=== PATIENT | female | born 1940 | race Caucasian/White ===

== ENCOUNTER 2024-05-02 11:26 | Inpatient (IN) | payer MEDICARE, BC, SELFPAY ==
[2024-05-02] VITALS (13 sets, daily range): BP systolic 126–213; BP diastolic 50–89; PULSE 82–90; BMI 23.5
[2024-05-02 04:16] LABS: Glucose - Point of Care 164 mg/dl (70-99)
[2024-05-02 04:44] LABS: % Basophils 0.7 % (0-2); % Eosinophils 0.5 % (0-6); % Immature Granulocytes 0.4 % (0-0.5); % Lymphocytes 24.3 % (20.5-51.1); % Monocytes 9.8 % (1.7-9.3); % Neutrophils 64.3 % (42.2-75.2); Absolute Basophils 0.1 10^3/uL (0-0.2); Absolute Monocytes 0.8 10^3/uL (0.1-0.6); Absolute Neutrophils 5.3 10^3/uL (1.4-6.5); Hematocrit 37.6 % (37.0-47.0); Hemoglobin 12.1 g/dL (12.0-16.0); Mean Corp Hgb Conc. 32.2 g/dL (33.0-37.0); Mean Corpuscular Hgb 27.5 pg (27.0-31.0); Mean Corpuscular Volume 85.5 fL (81.0-99.0); Mean Platelet Volume 10.4 fL (7.4-10.4); Nucleated Red Blood Cells % 0 %; Platelet Count 168 10^3/uL (130-400); Red Cell Dist. Width 13.3 % (11.5-14.5); White Blood Cell Count 8.2 10^3/uL (4.8-10.8)
[2024-05-02 05:23] LABS: ALT (SGPT) 17 U/L (0-35); AST (SGOT) 38 U/L (14-36); Albumin 3.9 g/dl (3.5-5.0); Alkaline Phosphatase 72 U/L (38-126); Blood Urea Nitrogen 27 mg/dl (7-17); Calcium 10.3 mg/dl (8.4-10.2); Carbon Dioxide 25 mmol/L (22-30); Chloride 108 mmol/L (98-107); Glucose 153 mg/dl (70-99); Potassium 4.5 mmol/L (3.5-5.1); Sodium 140 mmol/L (135-145); Total Bilirubin 0.7 mg/dl (0.2-1.3); Total Protein 6.9 g/dl (6.3-8.2); eGFR > 60.00
[2024-05-02] MEDS: NSS 1000 IV (05:52)
[2024-05-02 07:11] LABS: TSH Reflex To Free T4 0.02 uIU/ml (0.47-4.68)
[2024-05-02 07:17] LABS: Urine Albumin 1+ (Neg - Trace); Urine Bilirubin Negative (Negative); Urine Character Clear (Clear); Urine Color Yellow; Urine Glucose Negative (Negative); Urine Ketone Trace (Negative); Urine Leukocyte Trace (Negative); Urine Nitrite Negative (Negative); Urine Occult Blood Negative (Negative); Urine Urobilinogen Negative (Neg - 1+)
[2024-05-02 07:38] LABS: Free T4 3.03 ng/dl (0.78-2.19)
--- NOTE | 2024-05-02 08:05 | ED.GENMED ---
History of Present Illness
General
Chief Complaint: Dehydration Symptoms
Source: patient and spouse
Exam Limitations: clinical condition
Time Seen by Provider: 05/02/24 05:14
History of Present Illness
History of Present Illness:
This is an 84-year-old woman who resides at home with her . She has history of insulin requiring diabetes has been maintained on Levemir 14 units at bedtime for quite some time but states more recently Levemir was changed to a different
brand and she admits to not feeling well throughout the day yesterday and tonight developed acute diarrhea passing multiple liquid to loose stools and while attempting to get up out of bed she slipped and fell out of bed onto her bottom. She denies
head injury nor loss of consciousness but felt too weak to be able to get up on her own.
Initially reported no recent falls but according to family and patient herself she has fallen several times throughout the week and patient admits to falling into a [employer] several days ago when she was not using her walker.
With inability to stand, significant diarrhea tonight this prompted called 911 and she was brought to the ED for further evaluation.
A grandson notes that there has been a slow steady decline in his grandmothers overall functioning. Some increased confusion over the past several months.
There has been no episodes of hypoglycemia and patient states her diabetes has been well-controlled with hemoglobin A1c most recently at 6.8.
No close contacts with similar GI symptoms.
She has history of chronic arthritis of right hip and has an appointment with [facility] orthopedics scheduled for Wednesday.
She denies chest pain nor abdominal pain. She does not believe she has been running a fever. No recent antibiotics.
She admits to some chronic urinary frequency but denies dysuria nor urgency nor hematuria.
She takes no anticoagulants save for low-dose aspirin.
Past History
Past History
ED Past Medical History: HTN, IDDM, Hypothyroidism and Psychiatric
Social History
Tobacco: Non-smoker
Alcohol: None
Personal:
Living: with family
Family History
Family History: Other (Noncontributory)
Phy Exam
Physical Exam
Physical Exam:
GENERAL: 84-year-old woman appears her stated age, awake and alert, pleasant, mildly ill in appearance but easily communicative. is accompanying.
EYE: pupils equal and reactive. anicteric. The head is normocephalic, atraumatic.
NECK: Supple, nontender, no meningismus, no significant adenopathy.
ENT: Lips as well as oral mucosa are moderately dry. Posterior pharynx is clear. No rhinorrhea.
CARDIAC: Regular rate and rhythm. no murmur.
LUNGS: Clear breath sounds bilaterally, no acute respiratory distress, no wheezes/rales/rhonchi
ABDOMEN: Soft, nondistended, mild suprapubic and left lower quadrant tenderness with deep palpation only, no r/g, no cvat. normoactive BS.
BACK: No midline bony tenderness nor palpable bony pelvic tenderness.
NEUROLOGICAL: Alert and oriented x3, motor strength 5/5 bilateral upper extremities, +4/5 left lower extremity, 5/5 right lower extremity.
SKIN: Warm and dry, normal color, subacute scabbed abrasions right anterior knee and to lesser extent left anterior knee.
MUSCULOSKELETAL: No C/C/E. peripheral pulses are full and equal b/l. No palpable tenderness.
PSYCH: Normal and appropriate interaction.
Course
Orders/Labs/Results
Orders:
Orders
05/02/24 04:19
CMP [Comprehensive Metabolic Panel] Urgent
Complete Blood Count/With Diff Urgent
Free T4 Urgent
TSH Reflex To Free T4 Urgent
Comment: ADD ON
05/02/24 05:37
CT Head W/o Iv Contrast Urgent
Comment:
Reason For Exam: progressive confusion, freq falls x 1 week
05/02/24 05:38
CT Abd/pelvis W Iv Cont Urgent
Comment:
Reason For Exam: acute diarrhea, lowr abd pain
05/02/24 05:39
Add On- LAB Urgent
Tests Added?: TSH w reflex to free T-4
0.9% Sodium Chloride 1000 ml [Nss] 1,000 ml IV BOLUS
05/02/24 06:37
Urinalysis Reflex To Culture Urgent
Date Specimen was Collected: 05/02/24
Time Specimen was Collected: 06:27
Urine Microscopic Reflex Cult Urgent
Abnormal Lab Results
05/02/24 05/02/24 05/02/24
04:14 04:19 06:37
MCHC 32.2 L g/dL
(33.0-37.0)
Absolute Monos (auto) 0.8 H 10^3/uL
(0.1-0.6)
Monocytes % 9.8 H %
(1.7-9.3)
Chloride 108 H mmol/L
(98-107)
BUN 27 H mg/dl
(7-17)
Glucose 153 H mg/dl
(70-99)
Calcium 10.3 H mg/dl
(8.4-10.2)
AST 38 H U/L
(14-36)
TSH (Reflex) 0.02 L uIU/ml
(0.47-4.68)
Free T4 3.03 H ng/dl
(0.78-2.19)
Urine Ketones Trace A
(Negative)
Leukocyte Esterase Rfl Trace A
(Negative)
Urine Albumin (Reflex) 1+ A
(Neg - Trace)
POC Glucose 164 H mg/dl
(70-99)
05/02/24 04:19
05/02/24 04:19
Vital Signs
Initial and Last Documented VS:
Initial Vital Signs
Temp Pulse Resp BP Pulse Ox
98 F 80 18 126/56 100
05/02/24 00:25 05/02/24 00:25 05/02/24 00:25 05/02/24 00:25 05/02/24 00:25
Last Documented Vital Signs
Temp Pulse Resp BP Pulse Ox
98 F 65 19 146/89 97
05/02/24 00:25 05/02/24 07:00 05/02/24 07:00 05/02/24 07:00 05/02/24 07:00
MDM/Problems Addressed
Differential Diagnosis Includes:
Acute diarrheal illness concern for acute colitis, diverticulitis, gastroenteritis. Concern for acute kidney injury, dehydration, electrolyte abnormality.
With frequent falls concern for occult pelvic fracture, less likely hip fracture as patient has been ambulatory throughout the week, concern for closed head injury, subacute CVA especially in light of mild weakness of left lower extremity.
Will check labs, urinalysis and plan for CT of the head as well as CT abdomen pelvis.
Chronic conditions affecting care: DM, HTN, Neurological disorder, Psychiatric illness, Kidney disease and Other (Hypothyroidism)
*Radiology
Radiology exam reviewed: radiology read reviewed
*Pulse Oximetry
Patient hypoxic: no
*Habilitation Assistant Interpretation
Rate: normal
Interpretation: normal
Rhythm: sinus
*Critical Care Note
Total Time (30-74mins, 75-104mins- exclusive of procedures): Not Applicable
Update Note
Update Note:
05/02/2024 0831 AM
Labs are remarkable for moderate prerenal azotemia as well as moderately suppressed TSH with elevated free T4 at 3.03. Patient is chronically maintained on levothyroxine 125 mcg daily. Unclear as to her last TSH evaluation.
CAT scan of the head shows several old strokes, no evidence of acute stroke but this is certainly a possibility.
CT of the abdomen pelvis shows acute proctitis. There is note of significant vascular calcifications and note of a large partially calcified soft tissue mass distal esophagus without associated obstruction. As this mass is calcified is likely
chronic and patient has had no chest pain nor difficulty swallowing which lends to a more benign process.
I do have concern with acute proctitis, dehydration, generalized weakness and frequent falls. This could all be related to dehydration but there is still some concern for acute stroke.
Will admit to hospitalist service, continue IV fluids, consider antibiotics.
Patient initially hesitant to be hospitalized but now agreeable especially with 's urging.
ED Attending Note
-
Portions of this chart may have been created with voice recognition software.� Occasional wrong word or��sound alike� substitutions may have occurred due to the inherent limitations of voice recognition software.
Discharge Plan
Departure
Patient Disposition: Admit
Date of Disposition: 05/02/24
Time of Disposition: 08:29
Admit to: Med/Surg
Presentation/result/management discussed w/ accepting MD/DO: Hospitalist
Condition: Fair
Discharge Problem:
acute proctitis with diarrhea, Acute dehydration, Generalized weakness, Frequent falls, Overcorrected hypothyroidism
Prescriptions:
No Action
metformin 500 mg Tablet
1,000 mg PO DAILY
atorvastatin 80 mg Tablet
80 mg PO DAILY
valsartan 80 mg Tablet
80 mg PO DAILY
levothyroxine [Synthroid] 125 mcg Tablet
125 mcg PO DAILY
aspirin 81 mg Tablet,Chewable
81 mg PO DAILY
insulin glargine [Lantus Solostar U-100 Insulin] 100 unit/mL (3 mL) Insulin Pen
14 unit SC DAILY
divalproex
250 mg DAILY
olanzapine
DAILY
Referrals:
Samm Guillory MD [Family Provider] -
Interventions
Interventions:
*Risk Screen - Suicide Last Done: 05/02/24 00:25
*General Assessment Last Done: 05/02/24 07:27
*Neglect/Abuse Screening Last Done: 05/02/24 00:25
*ED COVID-19 Vaccine History Last Done: 05/02/24 07:27
ED- Cardiac Assessment Last Done: 05/02/24 05:30
ED-Musculoskeletal Assessment Last Done: 06/25/24 05:30
ED- Neurological Assessment Last Done: 05/02/24 05:30
ED- Pulmonary Assessment Last Done: 05/02/24 05:30
ED-Skin Assessment Last Done: 05/02/24 05:30
Discharge Date and Time
Print Language: GUINEAN
[2024-05-02 08:23] LABS: Urine Mucus Many; Urine Squamous Cell 0-2 /LPF (Few)
[2024-05-02 08:24] LABS: Urine Hyaline Cast >15 /LPF (0-2)
[2024-05-02 08:26] LABS: Urine Epithelial Cast 0-2 /LPF
--- NOTE | 2024-05-02 09:41 | CON.GI ---
Addendum entered and electronically signed by Lai Meléndez MD 05/02/24 16:16:
Patient seen and examined, agree with nurse practitioner note. The patient is an 84-year-old female past medical history of diabetes, hypothyroid, hypertension with questionable bipolar disorder, who presents with diarrhea. She has had
intermittent diarrhea, though usually not severe. She denies any bloody diarrhea or significant abdominal pain. Denies any dysphagia or odynophagia. She was found on CAT scan to have mild acute proctitis, as well as incidentally noted 7.4
partially calcified soft tissue mass in the distal esophagus, consistent with leiomyoma or less likely leiomyosarcoma. She is currently feeling better overall, denies any significant abdominal pain has had no further diarrhea. Most likely etiology
was just proctitis would be underlying constipation, likely overflow diarrhea, now with stercoral proctitis. At this point if she has further diarrhea we will check stool studies, though continue supportive care and observation. I discussed with
her and her about further workup of probable leiomyoma, that this is likely chronic given extensive calcification, and no symptoms, and we will hold on any further evaluation for now as even if this was a leiomyosarcoma would not consider
treatment or surgery.
Original Note:
Consultation
-
Date/Time Consultation Requested: 05/02/24844
Date/Time Consultation Performed: 05/02/24944
Requesting Provider: Odette Camargo DO
Performing Provider: ENEDINA Falcon, Darin Meléndez MD
Reason for Consultation: diarrhea/proctitis
Medical History
Chief Complaint / HPI
History of Present Illness:
Pt is a 84yo with hx NIDDM, ? bipolar, hypothyroidism, HTN with acute onset of diarrhea with passing multiple stools. In ER HCT with multiple infarcts and CT A/p with acute proctitis, large calcified soft tissue tumor in distal esophagus and GE
junction to esophageal hiatus, leiomyoma vs less likely leiomyosarcoma and also noted severe calcific atherosclerotic disease, aneurysmal dilation thoracic aorta, abdominal aorta, and right common iliac artery, renal art stenosis and renal
scarring.
Pt with some limited history. In reviewing with spouse pt with bout of diarrhea every several month. No constipation, no dysphagia, GERD, nausea, vomiting, abdominal pain, rectal bleeding or wt loss. No hx EGD or colonoscopy. No NSAID use.
Past Medical History
Past Medical History: HTN, Hypothyroidism, IDDM and Psychiatric (? bipolar- family denies )
Social History
Tobacco: Smoker
Alcohol: Occasional (rare)
Drug: None
Living: With Family
Employment: Retired
Family History
Family History: Other (no family hx GI cancers )
Allergies / Home Medications
Allergy/AdvReac Type Severity Reaction Status Date / Time
NKA - No Known Allergies Allergy Unknown Uncoded 05/02/24 00:29
�Medication �Instructions �Recorded
aspirin 81 mg chewable tablet 81 mg PO DAILY 05/02/24
atorvastatin 80 mg tablet 80 mg PO DAILY 05/02/24
divalproex 250 mg tablet,extended 750 mg PO HS 05/02/24
release 24 hr
insulin glargine 100 unit/mL (3 14 unit SC HS 05/02/24
mL) subcutaneous pen (Lantus
Solostar U-100 Insulin)
levothyroxine 125 mcg tablet 125 mcg PO MOTUWETHFRSA 05/02/24
(Synthroid)
levothyroxine 125 mcg tablet 250 mcg PO TOVAR 05/02/24
(Synthroid)
metformin 500 mg tablet,extended 1,000 mg PO QPM 05/02/24
release 24 hr
metformin 500 mg tablet,extended 500 mg PO DAILY 05/02/24
release 24 hr
olanzapine 5 mg tablet 5 mg PO HS 05/02/24
valsartan 80 mg tablet 80 mg PO DAILY 05/02/24
Review of Systems
-
History Source: Patient and Family
Constitutional: Reports Fever
Respiratory: Reports No Symptoms
Cardiac: Reports No Symptoms
Abdomen/GI: Reports Diarrhea
: Reports No Symptoms
Musculoskeletal: Reports No Symptoms
Skin: Reports No Symptoms
Neurological: Reports No Symptoms
Endocrine: Reports No Symptoms
Hematologic/Lymphatic: Reports No Symptoms
Vital Signs
Temp Pulse Resp BP Pulse Ox
98 F 62 19 182/70 95
05/02/24 00:25 05/02/24 07:15 05/02/24 07:15 05/02/24 09:00 05/02/24 08:43
Physical Exam
Exam
General: Well Developed, Well Nourished and Other (forgetful, anxious to use bathroom)
HEENT: Normocephalic and Anicteric
Respiratory: Clear
Cardiac: Regular Rhythm
GI: Soft, Non Tender and Non Distended
Rectal: Brown, Hem Negative and Other (some resistance to exam-- no masses or lesions, no impaction )
Musculoskeletal: No Clubbing and No Cyanosis
Skin: Warm and Dry
Neuro: Awake, Alert and Other (confused )
Psych: Calm
Results
WBC 8.2 10^3/uL (4.8-10.8) 05/02/24 04:19
Hgb 12.1 g/dL (12.0-16.0) 05/02/24 04:19
Hct 37.6 % (37.0-47.0) 05/02/24 04:19
MCV 85.5 fL (81.0-99.0) 05/02/24 04:19
Plt Count 168 10^3/uL (130-400) 05/02/24 04:19
Absolute Neuts (auto) 5.3 10^3/uL (1.4-6.5) 05/02/24 04:19
Sodium 140 mmol/L (135-145) 05/02/24 04:19
Potassium 4.5 mmol/L (3.5-5.1) 05/02/24 04:19
Chloride 108 mmol/L (98-107) H 05/02/24 04:19
Carbon Dioxide 25 mmol/L (22-30) 05/02/24 04:19
BUN 27 mg/dl (7-17) H 05/02/24 04:19
Creatinine 0.9 mg/dL (0.6-1.0) 05/02/24 04:19
Calcium 10.3 mg/dl (8.4-10.2) H 05/02/24 04:19
Total Bilirubin 0.7 mg/dl (0.2-1.3) 05/02/24 04:19
AST 38 U/L (14-36) H 05/02/24 04:19
ALT 17 U/L (0-35) 05/02/24 04:19
Alkaline Phosphatase 72 U/L (38-126) 05/02/24 04:19
Diagnostic Image Results:
05/02/24 CT Abd/pelvis W Iv Cont
1. Mild acute proctitis.
2. LARGE 7.4 cm PARTIALLY CALCIFIED SOFT TISSUE TUMOR in the DISTAL ESOPHAGUS and GASTROESOPHAGEAL JUNCTION extending through the esophageal hiatus. Diagnostic possibilities are (1) an ESOPHAGEAL LEIOMYOMA or (2) less likely an esophageal
leiomyosarcoma.
3. VERY SEVERE CALCIFIC ATHEROSCLEROTIC DISEASE in the chest, abdomen, and pelvis.
4. 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
5. 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
6. 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
7. Mild to moderate bilateral renal cortical scarring.
8. Severe calcific atherosclerotic plaque in the coronary arteries.
05/02/24 HCT
1. Moderate diffuse cerebral and cerebellar volume loss.
2. Moderate-sized chronic transcortical infarct in the posterior right frontal and anterior right parietal lobes.
3. Small chronic infarcts in the right frontal lobe, right caudate nucleus, periventricular left frontal lobe, and left cerebellum.
4. Very severe calcific atherosclerotic disease in both the anterior and posterior intracranial circulations.
Prior GI Procedures:
EGD: none
Colonoscopy: none
Assessment / Plan
-
Pt is a 84yo with hx NIDDM, ? bipolar, hypothyroidism, HTN with acute onset of diarrhea with passing multiple stools with hx periodic diarrhea. In ER HCT with multiple infarcts and CT A/p with acute proctitis, large calcified soft tissue tumor in
distal esophagus and GE junction to esophageal hiatus, leiomyoma vs less likely leiomyosarcoma and also noted severe calcific atherosclerotic disease, aneurysmal dilation thoracic aorta, abdominal aorta, and right common iliac artery, renal art
stenosis and renal scarring. No hx EGD or colonoscopy.
-acute onset of diarrhea
-proctitis on CT
-CT with large calcified soft tissue tumor distal esophagus to GE junction
-confusion with multiple infarcts on HCT
-severe calcific atherosclerotic disease
-elevated calcium
other med problems:
-NIDDM
-hypothyroidism
-HTN
-? bipolar disorder
PLAN:
etiology of symptoms of diarrhea related to constipation with overflow then resultant proctitis vs infectious process vs IBD vs other
await stool studies to be sent
ok for diet from GI standpoint
consider eventual colonoscopy vs flex if diarrhea persists with noted proctitis- heme neg in exam no impaction
will review CT with noted calcified mass distal esophagus with Dr. Meléndez and need for EGD
work up for confusion/infarct on HCT per hospitalist- new per family
reviewed with Dr. Denis
-
-
Thank you for consultation and allowing me to participate in the patient's care. Please call the electronic publishing specialist GI physician during the after hours with any questions or concerns.
--- NOTE | 2024-05-02 10:32 | HPS.HSE ---
Addendum entered and electronically signed by Millicent Denis MD 05/02/24 11:06:
Will also check echo given cardiac exam noted systolic murmur
Original Note:
Family Physician
-
Family Physician: Samm Guillory
Chief Complaint
-
Diarrhea
Fall
History of Present Illness
HPI: 84-year-old woman with PMH IDDM, HTN, Hypothyroidism, previous stroke with likely vascular dementia, chronic arthritis of right hip who resides at home with her ; p/w weakness and ?acute diarrhea. She apparently has had multiple liquid
loose stools and while attempting to get up out of bed to use the bathroom, she slipped and fell out onto her bottom.
She denies head injury or loss of consciousness but felt too weak to be able to get up on her own.
She is a poor historian due to likely vascular dementia.
Per ER note, her grandson noted that there has been a slow steady decline in his grandmother's overall function. Some increased confusion over the past several months.
Apparently no episodes of hypoglycemia and patient states her diabetes has been well-controlled with hemoglobin A1c most recently at 6.8.
She denies to other symptoms, but again, she is a poor and unreliable historian.
Medical History
Past Medical History
Past Medical History: Reports Other
Additional Past Medical History:
IDDM,
HTN,
Hypothyroidism,
previous stroke with likely vascular dementia,
chronic arthritis of right hip
Past Surgical History: Reports Other
Social History
Tobacco: Smoker (2 to 3 cigarettes/day)
Alcohol: None
Personal:
Living: With Family
Family History
Family History: Not pertinent
Allergies / Home Medications
Allergies reflects when Allergies were last updated in [email or web address].
Home Medications with original date entered in [email or web address]
Allergy/Medication List:
Allergies
Allergy/AdvReac Type Severity Reaction Status Date / Time
NKA - No Known Allergies Allergy Unknown Uncoded 05/02/24 00:29
Home Medications
aspirin 81 mg chewable tablet 81 mg PO DAILY Blood Clot Prevention/Tx 05/02/24
atorvastatin 80 mg tablet 80 mg PO DAILY High Cholesterol 05/02/24
divalproex 250 mg tablet,extended release 24 hr 750 mg PO HS Neurological Condition 05/02/24
insulin glargine 100 unit/mL (3 mL) subcutaneous pen (Lantus Solostar U-100 Insulin) 14 unit SC HS Diabetes 05/02/24
levothyroxine 125 mcg tablet (Synthroid) 125 mcg PO MOTUWETHFRSA Thyroid 05/02/24
levothyroxine 125 mcg tablet (Synthroid) 250 mcg PO TOVAR Thyroid 05/02/24
metformin 500 mg tablet,extended release 24 hr 1,000 mg PO QPM Diabetes 05/02/24
metformin 500 mg tablet,extended release 24 hr 500 mg PO DAILY Diabetes 05/02/24
olanzapine 5 mg tablet 5 mg PO HS Neurological Condition 05/02/24
valsartan 80 mg tablet 80 mg PO DAILY Blood Pressure 05/02/24
Review of Systems
-
Abdomen/GI: Reports See HPI and Diarrhea
Neurological: Reports See HPI and Weakness
Physical Exam
Vital Signs
Vital Signs
Temp Pulse Resp BP Pulse Ox
36.6 C 62 19 182/70 95
05/02/24 00:25 05/02/24 07:15 05/02/24 07:15 05/02/24 09:00 05/02/24 08:43
Physical Exam
General: Well Developed, Well Nourished, No Apparent Distress, Comfortable and Conversant
HEENT: NormoCephalic, Moist mucous membranes and Atraumatic
Respiratory: Clear and Non Labored Respirations; No Accessory Resp Muscle Use
Cardiac: S1/S2 and Regular Rhythm; No Murmur or Rub
GI: Soft, Non Tender, Non Distended and Normal Bowel Sounds; No Organomegaly
Rectal: Deferred by Provider
Musculoskeletal: No Clubbing, No Cyanosis and No Edema
Neuro: Awake and Alert
Psych: Calm; No Intact Judgment/Insight
Laboratory Results
-
05/02/24 04:19
05/02/24 04:19
Laboratory Results
Total Bilirubin 0.7 mg/dl (0.2-1.3) 05/02/24 04:19
AST 38 U/L (14-36) H 05/02/24 04:19
ALT 17 U/L (0-35) 05/02/24 04:19
Alkaline Phosphatase 72 U/L (38-126) 05/02/24 04:19
Data Reviewed
-
CT Scan: Report Reviewed by me
Lab Data: Labs Reviewed by me
Impression/Plan
-
HPI: 84-year-old woman with PMH IDDM, HTN, Hypothyroidism, previous stroke with likely vascular dementia, chronic arthritis of right hip who resides at home with her ; p/w weakness and ?acute diarrhea. She apparently has had multiple liquid
loose stools and while attempting to get up out of bed to use the bathroom, she slipped and fell out onto her bottom.
She denies head injury or loss of consciousness but felt too weak to be able to get up on her own.
She is a poor historian due to likely vascular dementia.
Per ER note, her grandson noted that there has been a slow steady decline in his grandmother's overall function. Some increased confusion over the past several months.
Apparently no episodes of hypoglycemia and patient states her diabetes has been well-controlled with hemoglobin A1c most recently at 6.8.
She denies to other symptoms, but again, she is a poor and unreliable historian.
CT AP:
1. Mild acute proctitis.
2. LARGE 7.4 cm PARTIALLY CALCIFIED SOFT TISSUE TUMOR in the DISTAL ESOPHAGUS and GASTROESOPHAGEAL JUNCTION extending through the esophageal hiatus. Diagnostic possibilities are (1) an ESOPHAGEAL LEIOMYOMA or (2) less likely an esophageal
leiomyosarcoma.
3. VERY SEVERE CALCIFIC ATHEROSCLEROTIC DISEASE in the chest, abdomen, and pelvis.
4. 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
5. 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
6. 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
7. Mild to moderate bilateral renal cortical scarring.
8. Severe calcific atherosclerotic plaque in the coronary arteries.
A/P:
# Generalized weakness
CT head showed chronic stroke
UA not indicative of UTI
TSH 0.02, FT4 3.03
PT OT eval
# Acute vs subacute diarrhea
check stool studies: culture, C diff, Norovirus
GI CS
# Incidental finding of soft tissue mass in the distal esophagus and GE junction
GI consult
# Mild acute proctitis, related to ?acute to subacute diarrhea
GI CS
# Mild hypercalcemia
s/p 1L NSS bolus in ED, cont to monitor Calcium level
# IDDM
Cont [employer] lantus at decrease dose at 10 units HS
cover with ISS
Hold [employer] metformin during hospital stay
# HTN
Cont [employer] Valsartan with holding parameter
# Hypothyroidism
TSH 0.02, FT4 3.03
would decrease [employer] Synthroid from 125 to 100 and repeat TSH reflex FT4 in 4 weeks with PCP
# previous stroke with likely vascular dementia
Patient awake, orientated 2-3
Monitor neurostatus
DVT ppx: Lovenox SQ
FC
[2024-05-02 13:10] LABS: Glucose - Point of Care 103 mg/dl (70-99)
--- NOTE | 2024-05-02 14:19 | PTOTSP ---
Dysphagia Evaluation
Oral and pharyngeal stages of swallowing WFL for consistencies assessed (see patient care note) with no signs of aspiration. Patient is at risk for bottom up aspiration (i.e., '7.4 cm soft tissue tumor in distal esophagus and GEJ') and has chronic
risk factors for dysphagia (i.e., dementia, prior CVA).
Recommend:
1. Thin Liquids (Clear Liquids per provider)
2. Medications - as best tolerated
3. Strategies: upright to 90 degrees, remain upright for at least 30 minutes as a reflux precaution
4. Will assess with advanced solids as able/medically appropriate.
--- NOTE | 2024-05-02 15:51 | CM ---
Reviewed the chart notes and spoke with the patient's spouse at the bedside. The patient resides alone in a one story home with five steps to enter. The patient has a rolling walker, no VN or SNF in past. [facility] The patient's discharge plans will depend on her progress. CM continues to be available to patient/family and is monitoring medical plan for needs at discharge.
Plan: Discharge plans will depend on the patient's progress.
[2024-05-02 16:14] LABS: Glucose - Point of Care 246 mg/dl (70-99)
--- NOTE | 2024-05-02 16:44 | PTCARENOTE ---
Patient received from ED, accompanied by family, on room air. BP elevated at 168/76, HR 79. No IV infusor noted during assessment. MD made aware and ordering oral hydralazine until new infusor restarted. Bed alarm in place due to risk for falling,
and med sitter requested.
[2024-05-02] MEDS: APRESOLINE 10 MG IV (17:08)
[2024-05-02] MEDS: LOVENOX 40 MG SC (17:09)
[2024-05-02] MEDS: NOVOLOG FLEXPEN-LOW RESISTANCE 2 UNITS SC (17:09)
[2024-05-02] MEDS: NOVOLOG FLEXPEN-LOW RESISTANCE SC (17:09)
[2024-05-02 21:12] LABS: Glucose - Point of Care 92 mg/dl (70-99)
[2024-05-02] MEDS: DEPAKOTE ER (24 HR RELEASE) 750 MG PO (21:16)
[2024-05-02] MEDS: ZYPREXA 5 MG PO (21:16)
[2024-05-02] MEDS: LANTUS 0.100000000000000006 UNITS SC (22:35)
[2024-05-03 03:14] LABS: Glucose - Point of Care 92 mg/dl (70-99)
[2024-05-03] MEDS: SYNTHROID 100 MCG PO (06:13)
[2024-05-03 06:37] LABS: Hematocrit 32.8 % (37.0-47.0); Hemoglobin 11.4 g/dL (12.0-16.0); Mean Corp Hgb Conc. 34.8 g/dL (33.0-37.0); Mean Corpuscular Hgb 27.7 pg (27.0-31.0); Mean Corpuscular Volume 79.6 fL (81.0-99.0); Mean Platelet Volume 10.9 fL (7.4-10.4); Platelet Count 166 10^3/uL (130-400); Red Blood Cell Count 4.12 10^6/uL (4.20-5.40); Red Cell Dist. Width 13.6 % (11.5-14.5); White Blood Cell Count 5.4 10^3/uL (4.8-10.8)
--- NOTE | 2024-05-03 06:46 | W.PN.GI.CBS2 ---
Today's Communication / Plan
-
Please see assessment and plan for details.
Assessment / Plan
-
1. Diarrhea: With proctitis on CT scan, more likely overflow diarrhea and underlying constipation, no symptoms overnight, exam is benign. At this point will advance to low residue diet and if tolerates is okay to DC from GI standpoint with
continued bowel regimen.
2. 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 She has no symptoms, underlying malignancy is very unlikely. Again, discussed with her and her family
yesterday, will hold on further workup.
Subjective
Subjective
Date of Service: May 03, 2024
Patient feeling well overall, no events overnight per nursing. No diarrhea or abdominal pain. She feels hungry.
Objective
Data Reviewed
Laboratory Data:
Laboratory Results
05/03/24 06:00
Laboratory Results
Total Bilirubin 0.7 mg/dl (0.2-1.3) 05/02/24 04:19
AST 38 U/L (14-36) H 05/02/24 04:19
ALT 17 U/L (0-35) 05/02/24 04:19
Alkaline Phosphatase 72 U/L (38-126) 05/02/24 04:19
Vital Signs and I&O:
Vital Signs
Temp Pulse Resp BP Pulse Ox
98.8 F 76 16 130/50 95
05/02/24 23:32 05/02/24 23:32 05/02/24 23:32 05/02/24 23:32 05/02/24 23:32
I&O
05/01/24 05/02/24 05/03/24
06:59 06:59 06:59
Intake Total 1080 / 1080
Balance 1080 / 1080
Physical Exam
Physical Exam
General: NAD
Abdomen: normal bowel sounds, soft, no tenderness, no masses or bruits, no ascites
[2024-05-03 07:13] LABS: Blood Urea Nitrogen 16 mg/dl (7-17); Calcium 9.8 mg/dl (8.4-10.2); Carbon Dioxide 28 mmol/L (22-30); Chloride 108 mmol/L (98-107); Estimated Creatinine Clearance 40 ml/min; Glucose 66 mg/dl (70-99); Magnesium 1.9 mg/dl (1.6-2.3); Potassium 3.8 mmol/L (3.5-5.1); Sodium 142 mmol/L (135-145); eGFR > 60.00
[2024-05-03 07:25] VITALS: BP 159/72
[2024-05-03 08:33] VITALS: BP 154/83; BP 159/72; BP 166/82; PULSE 72; PULSE 84; PULSE 88
[2024-05-03 08:52] LABS: Glucose - Point of Care 83 mg/dl (70-99)
[2024-05-03] MEDS: DIOVAN 80 MG PO (09:43)
[2024-05-03] MEDS: LOW STRENGTH ASPIRIN 81 MG PO (09:43)
[2024-05-03] MEDS: NOVOLOG FLEXPEN-LOW RESISTANCE SC ×2 (09:43→12:42)
[2024-05-03] MEDS: LIPITOR 80 MG PO (09:43)
[2024-05-03 10:08] VITALS: BP 147/79; PULSE 79; O2SAT 99
[2024-05-03 10:12] VITALS: BP 147/79; PULSE 79; O2SAT 99
--- NOTE | 2024-05-03 11:15 | W.PN.HOSP.TC ---
Addendum entered and electronically signed by Millicent Denis MD 05/03/24 14:15:
Patient refuses SNF. retail store manager will set up visiting nurse. Patient would like to be discharged today.
Updated brother on the phone
Updated RN
Total DC time 40 minutes
Original Note:
Today's Communication/Plan
-
see A/P
Assessment / Plan
Assessment / Plan
HPI: 84-year-old woman with PMH IDDM, HTN, Hypothyroidism, previous stroke with likely vascular dementia, chronic arthritis of right hip who resides at home with her ; p/w weakness and ?acute diarrhea. She apparently has had multiple liquid
loose stools and while attempting to get up out of bed to use the bathroom, she slipped and fell out onto her bottom.
She denies head injury or loss of consciousness but felt too weak to be able to get up on her own.
She is a poor historian due to likely vascular dementia.
Per ER note, her grandson noted that there has been a slow steady decline in his grandmother's overall function. Some increased confusion over the past several months.
Apparently no episodes of hypoglycemia and patient states her diabetes has been well-controlled with hemoglobin A1c most recently at 6.8.
She denies to other symptoms, but again, she is a poor and unreliable historian.
CT AP:
1. Mild acute proctitis.
2. LARGE 7.4 cm PARTIALLY CALCIFIED SOFT TISSUE TUMOR in the DISTAL ESOPHAGUS and GASTROESOPHAGEAL JUNCTION extending through the esophageal hiatus. Diagnostic possibilities are (1) an ESOPHAGEAL LEIOMYOMA or (2) less likely an esophageal
leiomyosarcoma.
3. VERY SEVERE CALCIFIC ATHEROSCLEROTIC DISEASE in the chest, abdomen, and pelvis.
4. 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
5. 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
6. 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
7. Mild to moderate bilateral renal cortical scarring.
8. Severe calcific atherosclerotic plaque in the coronary arteries.
A/P:
# Generalized weakness
CT head showed chronic stroke
UA not indicative of UTI
TSH 0.02, FT4 3.03
PT OT recc SNF
# Acute vs subacute diarrhea likely due to overflow diarrhea from underlying constipation
# Mild acute proctitis felt likely due to overflow diarrhea
check stool studies (culture, C diff, Norovirus) if able to obtain
Appreciate GI input, continue aggressive bowel regimen, diet advance to low residue diet
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
Per GI, she has no symptoms, underlying malignancy is very unlikely, hold on further workup.
# Systolic murmur on exam
check Echo
# Mild hypercalcemia, resolved after 1L NSS bolus in ED
# IDDM
Cont METAL WORKER lantus , further decrease to 8 units HS (from 14 units METAL WORKER)
cover with ISS
Hold METAL WORKER metformin during hospital stay
# HTN
Cont METAL WORKER Valsartan with holding parameter
# Hypothyroidism
TSH 0.02, FT4 3.03
would decrease Synthroid from METAL WORKER 125 to 100, and repeat TSH reflex FT4 in 4 weeks with PCP
# previous stroke with likely vascular dementia
Patient awake, orientated 2-3
MS at baseline
DVT ppx: Lovenox SQ
FC
DW CM
Anticipated Discharge: 24 - 48 hours
Subjective/Interval History
-
Date of Service: May 03, 2024
Objective Data
-
Labs:
Laboratory Results
05/03/24
06:00
WBC 5.4
Hgb 11.4 L
Hct 32.8 L
Plt Count 166
Sodium 142
Potassium 3.8
Chloride 108 H
Carbon Dioxide 28
BUN 16
Creatinine 0.8
Glucose 66 L
Calcium 9.8
Vital Signs:
Vital Signs
Temp Pulse Resp BP Pulse Ox
36.4 C 72 18 159/72 95
05/03/24 07:25 05/03/24 09:43 05/03/24 07:25 05/03/24 09:43 05/03/24 07:25
I&O
05/02/24 05/03/24 05/04/24
06:59 06:59 06:59
Intake Total 1080 / 1080
Balance 1080 / 1080
Review of Systems
-
Abdomen/GI: Reports Constipated
Physical Exam
-
General: Well Developed, Well Nourished, No Apparent Distress, Comfortable, Conversant and Appears Chronically Ill; Negative Respiratory Distress
HEENT: Normocephalic, Atraumatic, Nose Appears Normal and Ears Appear Normal; Negative Oxygen
Respiratory: Clear to Auscultation and Non Labored Respirations; Negative Accessory Resp Muscle Use
Cardiac: Regular Rhythm and S1/S2
GI: Soft, Nontender, Nondistended and Normal Bowel Sounds
Skin: Warm and Dry
Neuro: Awake and Alert
Psych: Calm
Data Reviewed
-
CT Scan: Report Reviewed by me
Labs: Labs Reviewed by me
[2024-05-03 12:40] LABS: Glucose - Point of Care 142 mg/dl (70-99)
[2024-05-03 12:47] LABS: Glycohemoglobin (HgbA1c) 6.3 % (4.0-5.6)
--- NOTE | 2024-05-03 14:13 | PTCARENOTE ---
Patient pulled her IV infusor out of frustration, requesting to go home, stating that she is not staying here another day here. Dr Denis made aware and discharge with VN is in progress. and brother are at bedside; updated of plan.
--- NOTE | 2024-05-03 14:15 | W.DCSUMMARY ---
Discharge Summary
Discharge Data
Date of Admission: 05/02/24
Date of Discharge: 05/03/24
-
Pending Results: No
Hospital Course
Principal Diagnosis:
Acute vs subacute diarrhea likely due to overflow diarrhea from underlying constipation
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
Systolic murmur on exam due to Moderate aortic stenosis.
Chronic Diagnoses:�
Insulin-dependent diabetes. Prior to admission Lantus decreased from 14 units to 8 units at bedtime.
Hypertension
Hypothyroidism (TSH 0.02, FT4 3.03 this admission). Prior to admission Synthroid dose decreased from 125 to 100 mcg daily, repeat thyroid function test in 4 weeks with PCP.
Previous stroke
Chronic arthritis of right hip
Consultations:�
Gastroenterology
Procedures:�
None
Clinical course:�
This is a 84-year-old woman with past medical history as stated above, who presented with weakness and overflow diarrhea from underlying constipation.
Problem 1:
Generalized weakness.
Her CT head showed chronic stroke, no acute intracranial abnormality.
Her UA was not indicative for urinary tract infection.
She was recommended SNF per PT OT eval, however she declined SNF and opted to return home with VN.
Problem 2:
Acute vs subacute diarrhea likely due to overflow diarrhea from underlying constipation.
Her CT abdomen pelvis noted mild acute proctitis which is felt likely due to overflow diarrhea.
She has had no further diarrhea while in the hospital, hence stool studies could not be checked.
She was started with aggressive bowel regimen per GI.
She can continue with bowel regimen with senna, MiraLAX, Dulcolax as needed.
Problem 3:
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
Per GI, she has no symptoms, underlying malignancy is very unlikely, hence hold on further workup.
Problem 4:
Systolic murmur on exam due to Moderate aortic stenosis.
She has been informed to follow-up with cardiology outpatient for this.
As for the rest of her medical problems, they were stable during her hospital stay.
Discharge Plan
-
Patient Disposition: Home with Home Care
Discharge Diagnosis/Procedures: Generalized weakness with overflow diarrhea due to underlying constipation; Moderate aortic stenosis; Hypothyroidism (TSH 0.02, FT4 3.03 this admission)
Condition: Fair
Diet: As tolerated
Activity: As tolerated
Driving Restrictions: No driving
Blood Work: TSH reflex FT4 in 4 weeks
Other Services: VN
Activity Restrictions/Additional Instructions:
Follow up with cardiology for your moderate aortic stenosis.
Referrals:
Samm Guillory MD [Family Provider] - in less than 1 week
Additional Discharge Medication Instructions: Your Synthroid dose was decreased to 100 mcg daily. Follow-up with your PCP for repeat thyroid function test in 4 weeks (TSH 0.02, FT4 3.03 this admission)
Continue aggressive bowel regimen to help with your constipation.
Your Lantus dose was decreased from 14 units at night to 8 units at night.
Prescriptions:
New
sennosides-docusate sodium [Stool Softener-Laxative] 8.6-50 mg Tablet
1 tab PO BIDPRN PRN (Reason: constipation) Qty: 30 0RF
levothyroxine 100 mcg Tablet
100 mcg PO DAILY @ 0600 Qty: 30 0RF
polyethylene glycol 3350 [HealthyLax] 17 gram Powder In Packet
17 g PO DAILYPRN PRN (Reason: constipation) Qty: 30 0RF
bisacodyl 10 mg Suppository
[address] [id number] PRN (Reason: constipation) Qty: 30 0RF
Continued
atorvastatin 80 mg Tablet
80 mg PO DAILY
olanzapine 5 mg Tablet
5 mg PO HS
valsartan 80 mg Tablet
80 mg PO DAILY
aspirin 81 mg Tablet,Chewable
81 mg PO SUTUTHSA
divalproex 250 mg Tablet Extended Release 24 Hr
750 mg PO HS
metformin 500 mg Tablet Extended Release 24 Hr
1,000 mg PO DAILY@1200
Changed
insulin glargine [Lantus Solostar U-100 Insulin] 100 unit/mL (3 mL) Insulin Pen
8 unit SC HS Qty: 0 0RF
Discontinued
levothyroxine [Synthroid] 125 mcg Tablet
125 mcg PO MOTUWETHFRSA
levothyroxine [Synthroid] 125 mcg Tablet
250 mcg PO TOVAR
Discharge Orders:
Discharge Patient (As Directed); Ordered 05/03/24
Ordered By: Millicent Denis
Discharge Date and Time
Print Language: ALBANIAN
--- NOTE | 2024-05-03 14:16 | CM ---
Reviewed the chart notes and spoke with the patient and spouse at the bedside. Reviewed with patient and family PT/OT recommendations of SNF. Patient adamantly refuses and requests to be discharged today to home. Patient has a steroid injection
scheduled with ortho for Wednesday and does not want to miss the appointment. Spouse in agreement with home with VN services. Referral sent via [facility]. CM continues to be available to patient/family and is monitoring medical plan for needs at
discharge.
Plan: Discharge to home with VN services. Patient's spouse will provide transportation home.
--- NOTE | 2024-05-03 14:59 | PTCARENOTE ---
Patient is up for discharge with VN services. Instructions printed and discussed with spouse and patient's brother.
[2024-05-03 15:03] VITALS: BP 142/77
== END 2024-05-03 15:05 | disposition home health service (06) | DRG 392 ==
LOC: 2 NORTH 11:26
PROVIDERS: Emergency Medicine; ADMITTING PHYSICIAN Internal Medicine; CONSULT PHYSICIAN Internal Medicine Gastroenterology; EMERGENCY PHYSICIAN Emergency Medicine; FAMILY PHYSICIAN Family Medicine
DX: K59.00 Constipation, unspecified (principal); E83.52 Hypercalcemia; E11.9 Type 2 diabetes mellitus without complications; I10 Essential (primary) hypertension; E03.9 Hypothyroidism, unspecified; R01.1 Cardiac murmur, unspecified; D13.0 Benign neoplasm of esophagus
CPT/HCPCS: 70450; 74177; 80048; 80053; 81003; 81015; 82962; 83036; 83735; 84439; 84443; 85025; 85027; 92610; 93306; 96360; 96361; 97162; 97167; 99285; Q9967